=== PATIENT | male | born 2000 | race Caucasian/White ===

== ENCOUNTER 2021-03-02 16:36 | Emergency (ER) | payer OTHER, SELFPAY ==
[2021-03-02 16:41] VITALS: BP 113/63; PULSE 102; RESP 16; TEMP 38.3; O2SAT 100
--- NOTE | 2021-03-02 16:47 | ED.ABDPAIN ---
HPI - Abdominal Pain General Chief Complaint: Upper Respiratory Infection Stated Complaint: sore throat/cough Time Seen by Provider: 03/02/21 16:47 Source: patient and family (mom) Mode of arrival: ambulatory Limitations: no limitations History of Present Illness HPI narrative: 20-year-old male is brought in by his mom with complaints of 4 days of vomiting, cough, generalized abdominal pain, runny nose and a headache. No treatment prior to arrival. Patient is not vaccinated for COVID-19. On arrival patient has had a fever. No treatment again prior to arrival Related Data Allergies Allergy/AdvReac Type Severity Reaction Status Date / Time No Known Allergies Allergy Mild Verified 07/04/19 21:58 Review of Systems Review of Systems: All systems reviewed & are unremarkable except as noted in HPI and below Constitutional: Constitutional: Reports as per HPI, Reports chills, Reports fatigue and Reports fever(s) Eyes: Eyes: Reports no additional eye complaints ENT: Reports as per HPI, Reports nasal congestion and Reports sore throat Cardiovascular: Cardiovascular: Reports no additional cardiovascular complaints and Denies chest pain Respiratory: Respiratory: Reports as per HPI, Denies chest congestion, Reports cough, Denies dyspnea and Denies wheezing Gastrointestinal: Gastrointestinal: Reports as per HPI, Reports abdominal pain (Generalized), Reports nausea and Reports vomiting Genitourinary: Genitourinary: Reports no additional male genitourinary complaints Musculoskeletal: Musculoskeletal: Reports as per HPI and Reports myalgias Integumentary/Breasts: Skin/Breast: Reports system reviewed and no additional complaints, except as docu Neurologic: Reports as per HPI and Reports headache(s) Psychiatric: Psychiatric: Reports no additional psychiatric complaints Allergic/Immunologic: Allergic/Immunologic: Reports no additional allergic/immunologic complaints, Denies lip swelling, Denies throat swelling, Denies tongue swelling and Denies wheezing PMFSH Past Medical History Medical History (Updated 03/02/21 @ 17:06 by Abiola Paulson) Arm fracture, right Asthma Seasonal allergies Surgical History Surgical History No history of previous surgery Social History Social History Smoking status: Never smoker Comments At the time of my signature, I reviewed and agree with the nursing past medical, surgical, social, and family history. There is no relevant family history pertinent to the patient complaint. Exam Const: General: alert and ill appearing acutely Nutritional Appearance: well nourished Orientation/consciousness: patient oriented x3 Limitations: no limitations HENMT: Head: normal to inspection Ears: external ears normal, TM's normal bilaterally and EAC's normal General nose exam: Normal external nose present, Abnormal mucous membranes and turbinates present boggy and Nasal discharge present clear Face and sinus: normal facial exam Mouth: Yes Normal oral and palatal mucosa present, Yes lip normal, Yes oropharynx normal and Yes moist mucous membranes Throat: posterior oropharynx normal and uvula midline Eyes: Conjunctivae: conjunctivae normal Pupils: Equal, round and reactive pupils present Neck: Neck: normal visual inspection, no lymphadenopathy and no meningeal signs Chest: Chest palpation & inspection: normal inspection of the chest Resp: Effort & Inspection: normal respiratory effort and no use of accessory muscles Auscultation: clear to auscultation bilaterally, no crackles, no rales, no rhonchi and no wheezes Cardio: Rate: regular rate Rhythm: regular rhythm GI: GI Palp: Yes Soft to palpation and Yes Tenderness to palpation present (GI) (Generalized) Back/Spine/Pelvis: Back: no CVA tenderness Skin: General skin exam: normal color Rashes: no rashes Wounds: no wounds Neuro: General: patient orient
[2021-03-02] MEDS: ONDANSETRON HCL ODT 4 MG TABLET PO (16:58)
--- NOTE | 2021-03-02 17:18 | PC.NURSE ---
Tylenol given, but unable to document in the MAR
== END 2021-03-02 17:45 | disposition home or self-care (01) ==
PROVIDERS: Emergency Provider Nurse Practitioner; PCP Pediatrics
DX: U07.1 COVID-19 (principal); J45.909 Unspecified asthma, uncomplicated
CPT/HCPCS: 87081; 87426; 87880; 99213; A9270; C9803; G0463

== ENCOUNTER 2023-03-27 22:50 | Emergency (ER) | payer OTHER, SELFPAY ==
[2023-03-27 22:55] VITALS: BP 115/63; PULSE 71; RESP 15; TEMP 36.5; O2SAT 100
== END 2023-03-28 03:10 | disposition left against medical advice (07) ==
LOC: ANHED 03-28 02:07
PROVIDERS: PCP Pediatrics
DX: S81.851A Open bite, right lower leg, initial encounter (principal)
CPT/HCPCS: 99199

== ENCOUNTER 2025-03-22 16:46 | Emergency (ER) | payer SELFPAY ==
--- NOTE | ~2025-03-22 | XR_ITS ---
EXAM: XR hand RT min 3V DATE: 03/22/2025 17:05 HISTORY: Cat bite . COMPARISON: 2017. FINDINGS: Normal mineralization. Old right second proximal phalanx fracture healed in mild deformity . No acute fracture or dislocation. No lytic or blastic lesion. Joint spaces are maintained. No erosi on or periosteal change. Subcutaneous emphysema and soft tissue swelling in the medial and anterior p stacey. IMPRESSION: Subcutaneous emphysema and soft tissue swelling in the medial and anterior palm concernin g for infection. Consider deep palmar space infection in the differential. Reviewed, dictated and finalized at location K. IMPRESSION: Subcutaneous emphysema and soft tissue swelling in the medial and a nterior palm concerning for infection. Consider deep palmar space infection in the differential.
[2025-03-22 16:51] VITALS: BP 121/68; PULSE 84; RESP 16; TEMP 36.4; O2SAT 99
--- NOTE | 2025-03-22 16:52 | ED.ANIMALBIT ---
HPI - Animal Bite General Chief Complaint: Animal Bite Stated Complaint: cat bite to R hand Time Seen by Provider: 03/22/25 16:52 Source: patient Mode of arrival: ambulatory Limitations: no limitations History of Present Illness HPI narrative: Patient got bitten by his cat to the right hand, was trying to prevent the cat from attacking his girlfriend. No other injuries Related Data Allergies Allergy/AdvReac Type Severity Reaction Status Date / Time No Known Allergies Allergy Mild Verified 03/22/25 16:48 Review of Systems Review of Systems: All systems reviewed & are unremarkable except as noted in HPI and below PMFSH Past Medical History Medical History Seasonal allergies Arm fracture, right Asthma Surgical History Surgical History No history of previous surgery Social History Social History Smoking status: Never smoker Exam Narrative: General appearance: Well-developed, well-nourished Skin: Normal color Head: Normocephalic, nontraumatic Chest and respiratory: Airway patent, no respiratory distress, no accessory muscle use Heart: Regular rate/rhythm Abdomen: Soft, nontender, no organomegaly, quiet bowel sounds Vascular: Normal peripheral pulses, normal capillary refill. Musculoskeletal: Right hand exam showing 2 mm puncture wounds x4 at the dorsal side of the web between the thumb and index Neurologic: Alert and oriented ?3, [employer] is normal as tested, no gross motor deficit Course Vital Signs Vital signs: Vital Signs Temperature 36.4 C 03/22/25 16:51 Pulse Rate 84 03/22/25 16:51 Respiratory Rate 16 03/22/25 16:51 Blood Pressure 121/68 03/22/25 16:51 Pulse Oximetry 99 03/22/25 16:51 Oxygen Delivery Room Air 03/22/25 16:51 Temperature 36.4 C 03/22/25 16:51 Pulse Rate 84 03/22/25 16:51 Respiratory Rate 16 03/22/25 16:51 Blood Pressure 121/68 03/22/25 16:51 Pulse Oximetry 99 03/22/25 16:51 Oxygen Delivery Room Air 03/22/25 16:51 MDM - Animal Bite MDM Narrative Medical decision making narrative: A cat bite to right hand Differential diagnosis include infection, broken teeth, dented bones X-ray of the right hand showed Differential Diagnosis Differential diagnosis: Likely cat bite Medical Records Attestation: I reviewed the patient's medical records. Imaging Data Radiologist's impression: Impressions Hand X-Ray 03/22/25 17:31 IMPRESSION: Subcutaneous emphysema and soft tissue swelling in the medial and anterior palm concerning for infection. Consider deep palmar space infection in the differential. Critical Care Time Critical Care Time Critical Care Time: No Discharge Plan Discharge Clinical Impression: Cat bite Patient Disposition: Home Condition: Stable Instructions: Antibiotic Form, Animal Bite (ED) Patient Language: [place] Prescriptions: New amoxicillin-pot clavulanate [Augmentin] 500-125 mg tablet 1 tablet PO Q8H Qty: 30 0RF No Action ibuprofen 600 mg tablet 600 mg PO Q6H PRN (Reason: fever or pain) Qty: 30 0RF ondansetron HCl [Zofran] 4 mg tablet 4 mg PO Q6H PRN (Reason: nausea and vomiting) Qty: 20 0RF Follow-up/Referrals: Tristin,MD [place] [Primary Care Provider] -
[2025-03-22] MEDS: TETANUS,DIPHTHERIA,AC PERTUSSIS ADULT (0.5 ML) BOOSTRIX IM (17:28)
== END 2025-03-22 18:31 | disposition home or self-care (01) ==
PROVIDERS: Emergency Provider Emergency Medicine; PCP Pediatrics
DX: S61.451A Open bite of right hand, initial encounter (principal); W55.01XA Bitten by cat, initial encounter; Z23 Encounter for immunization
CPT/HCPCS: 73130; 90471; 90715; 99283